=== PATIENT | female | born 1980 | race Caucasian/White ===

== ENCOUNTER → 2024-08-25 16:43 | Outpatient (CLI) | payer OTHER, SELFPAY ==
--- NOTE | 2024-08-25 16:45 | DI.MG.S_ITS ---
MM screening mammo BI: 08/25/2024. BI-RADS: 1 CLINICAL: 44-year old female for bilateral screening mammogram. Tyrer-Cuzick lifetime risk of 7.1%. No personal or first-degree family history of breast cancer. PRIOR EXAMS: None. This is a baseline mammogram. MAMMOGRAPHY TECHNIQUE: 2D and 3D (tomosynthesis) digital mammographic views obtained, with additional images as needed for full coverage. Current study was also evaluated with a Computer Aided Detection (CAD) system. DENSITY B. There are scattered areas of fibroglandular density. MAMMOGRAPHY FINDINGS Bilateral: No suspicious mass, asymmetry, microcalcification, or other abnormality seen. IMPRESSION: * No evidence of malignancy. RECOMMENDATIONS Bilateral * Annual screening mammography. OVERALL ASSESSMENT CATEGORY BI-RADS-1: Negative. The [employer] recommends annual screening mammography beginning at age 40 for women with average risk of breast cancer. ELECTRONICALLY SIGNED: Lise Smart M.D. on 08/26/2024 at 10:02:04 PM PT Interpreting Station ID: [id number]
== END ==
LOC: MAMMO 16:45
PROVIDERS: PCP Family Medicine; Referring Provider Family Medicine; Visit Provider Family Medicine
DX: Z12.31 Encounter for screening mammogram for malignant neoplasm of breast (principal)
CPT/HCPCS: 77063; 77067

== ENCOUNTER 2024-09-14 07:54 | Day surgery (SDC) | payer OTHER, SELFPAY ==
[2024-09-14 08:12] VITALS: BP 158/103; PULSE 72; RESP 16; TEMP 36.3; O2SAT 97
[2024-09-14] MEDS: LACTATED RINGERS 1,000 ML 42 ML IV (08:23)
--- NOTE | 2024-09-14 08:44 | PM.HP.IH.1 ---
History of Present Illness History of Present Illness Date Patient Seen: 09/14/24 Chief complaint: Colonoscopy Narrative: For screening colonoscopy PFSH Social History Smoking Status: Former smoker alcohol intake: current Meds Home Medications and Allergies Home Medications Medication Instructions Recorded Confirmed Type sodium,potassium,mag sulfates 17.5 See Rx Instructions PO .COMPLEX 09/12/24 Rx gram-3.13 gram-1.6 gram oral soln #354 mL (Suprep Bowel Prep Kit) buspirone 5 mg tablet 5 mg PO 3XD PRN Insomnia 09/14/24 09/14/24 History cholecalciferol (vitamin D3) 50 50 mcg PO DAILY 09/14/24 09/14/24 History mcg (2,000 unit) tablet (Vitamin D3) diphenhydramine HCl 25 mg capsule 25 mg PO BEDTIME PRN Insomnia 09/14/24 09/14/24 History (Benadryl) melatonin 5 mg tablet 5 mg PO BEDTIME PRN Insomnia 09/14/24 09/14/24 History trazodone 50 mg tablet 25 mg PO PRN PRN Sleep 09/14/24 09/14/24 History Allergies Allergy/AdvReac Type Severity Reaction Status Date / Time No Known Drug Allergies Allergy Verified 09/14/24 08:09 Exam Vital Signs (past 8 hours): - 09/14/24 08:12 Temperature 97.3 F L Pulse Rate 72 Respiratory Rate 16 Blood Pressure 158/103 H Pulse Oximetry 97 Oxygen Delivery Method Room Air Oxygen Delivery Method Room Air Narrative Exam Narrative: Oropharynx free of lesions Chest clear to auscultation percussion Cardiac exam reveals no S3 or murmur Assessment & Plan Assessment & Plan narrative: For screening for screening colonoscopy. Risks, benefits, alternatives have been explained. Time-Based Coding :: [TOTAL MINUTES] spent with patient and on the chart (including review of chart, obtaining history, exam, reviewing outside data, placing orders, documenting exam and treatment plan, and counseling patient) on [DATE]. [employer] Liquid [employer]ounder Document charge(s): No
--- NOTE | 2024-09-14 08:45 | P.OP.COLON_ITS ---
Operative Date/Time/Diagnoses Date of procedure: 09/14/24 Pre-op diagnosis: See indication and findings Procedure & Clinicians Study performed: Colonoscopy Indications: Screening Surgeon: Gregory Mace Procedure Notes Procedure in detail: After informed consent was obtained the patient was placed in left lateral d ecubitus position. The video colonoscope was introduced the rectum slowly advanced cecum. Preparation was good. On slow withdrawal mucosa was carefully examined. The scope was removed. The patient tolerated the procedure well. Blood loss none Complications none Sedation mac Findings 1.
--- NOTE | 2024-09-14 09:34 | P.OP.COLON_ITS ---
Operative Date/Time/Diagnoses Date of procedure: 09/14/24 Pre-op diagnosis: See indication and findings Post-op diagnosis: same Procedure & Clinicians Study performed: Colonoscopy Same procedure as scheduled: Yes Indications: Screening, 1st colonoscopy Surgeon: Gregory Mace Procedure Notes Procedure in detail: After informed consent was obtained the patient was placed in left lateral decubitus position. The video colonoscope was introduced the rectum slowly adv anced cecum. Preparation was good. On slow withdrawal mucosa was carefully examined. Scope was removed. The patient tolerated procedure well. Blood loss none Complications none Sedation mac Findings 1. Normal colonoscopy to cecum Patient should have follow-up colonoscopy in 10 years
[2024-09-14 09:36] VITALS: BP 145/95; PULSE 72; RESP 12; TEMP 36.8; O2SAT 98
[2024-09-14 09:41] VITALS: BP 144/109; PULSE 72; RESP 12; O2SAT 99
--- NOTE | 2024-09-14 09:43 | SUR.PHASEII ---
Talked to pt about her hypertension and how she does need to talk to her primary care about her blood pressure. Pt states she has talked to her primary and she is going on a weight loss drug.
[2024-09-14 09:46] VITALS: BP 162/96; PULSE 67; RESP 14; O2SAT 99
== END 2024-09-14 09:59 | disposition home or self-care (01) ==
PROVIDERS: PCP Family Medicine; Referring Provider Internal Medicine Gastroenterology; Visit Provider Internal Medicine Gastroenterology
PROC: 0DJD8ZZ Inspection of Lower Intestinal Tract, Via Natural or Artificial Opening Endoscopic (ICD-10-PCS; CPT 45378; principal; 2024-09-14 09:00)
DX: Z12.11 Encounter for screening for malignant neoplasm of colon (principal); Z87.891 Personal history of nicotine dependence
CPT/HCPCS: 45378; J2704

== ENCOUNTER → 2025-03-02 11:29 | Outpatient (CLI) | payer OTHER, SELFPAY ==
--- NOTE | 2025-03-02 11:30 | DI.RAD.S_ITS ---
PROCEDURE: XR CERVICAL SPINE 2V OR 3V INDICATIONS: L SHOULDER STRAIN TECHNIQUE: Four views of the cervical spine were acquired. COMPARISON: None. FINDINGS: Cervical spine curvature and alignment: Normal. Bones: There are no osseous abnormalities. Disc spaces: Normal in height without significant degeneration. Intervertebral foramen: Grossly normal in width. Soft tissues: No soft tissue swelling, calcification or mass. IMPRESSION: Normal cervical spine. Dictated by: Ishan Bailey M.D. on 03/03/2025 at 11:27 Approved by: Ishan Bailey M.D. on 03/03/2025 at 11:28
== END ==
PROVIDERS: PCP Family Medicine; Referring Provider Family Medicine; Visit Provider Family Medicine
DX: S46.912A Strain of unspecified muscle, fascia and tendon at shoulder and upper arm level, left arm, initial encounter (principal); X58.XXXA Exposure to other specified factors, initial encounter
CPT/HCPCS: 72040

== ENCOUNTER → 2025-03-27 09:32 | Outpatient (CLI) | payer OTHER, SELFPAY ==
--- NOTE | 2025-03-27 09:40 | DI.MRI.S_ITS ---
PROCEDURE: MR CERVICAL SPINE WO CON INDICATIONS: chronic neck pain TECHNIQUE: Noncontrast sagittal T1 spin echo and T2 fast spin echo, sagittal STIR, foraminal oblique sagittal T2 fast spin echo, and axial gradient echo or T2 fast spin echo through the cervical spine. COMPARISON: [facility], CR, XR CERVICAL SPINE 2V OR 3V, 03/02/2025, 11:36. FINDINGS: Image quality: Excellent. Alignment and Curvature: There is overall straightening of the normal cervical lordosis. No focal AP alignment abnormality is seen. Bone Marrow: Marrow demonstrates normal overall signal. Spinal Cord: Visualized spinal cord has normal size and signal. No cerebellar tonsillar herniation. Paraspinous Soft Tissues: No paravertebral masses. Prevertebral soft tissues are normal in thickness. C2-C3: Normal appearance. C3-C4: Normal appearance. C4-C5: The disc height and disk signal are relatively well-preserved. A mild degree of generalized disc osteophyte complex is seen. Moderate facet joint hypertrophy is seen. There is moderate left-sided and no right-sided neural narrowing. No central canal narrowing is seen. C5-C6: The disc height and disk signal are well-preserved. Mild to moderate disc osteophyte complex is seen, which is eccentric to the right. Moderate facet joint hypertrophy is seen. There is at least moderate bilateral neural foraminal narrowing seen, right worse than left. Mild to moderate central canal narrowing is seen. C6-C7: The disc height and disk signal are relatively well-preserved. Mild to moderate disc osteophyte complex is seen, which is eccentric to the left. There is a superimposed central disc osteophyte protrusion. Mild facet joint hypertrophy is seen. There is moderate to severe left-sided and moderate right-sided neural foraminal narrowing. Mild central canal narrowing is seen. C7-T1: Normal appearance. T1-T2: The disc height is relatively well preserved. There is a central disc osteophyte protrusion, as on series 3, image 43. No significant neural foraminal narrowing is seen. Mild central canal narrowing is seen. IMPRESSION: Cervical spine degenerative changes are seen, which are worst at the C5-C6 level. Dictated by: Levi Pitts M.D. on 03/27/2025 at 18:34 Approved by: Levi Pitts M.D. on 03/27/2025 at 18:37
== END ==
LOC: MRI 09:33
PROVIDERS: PCP Family Medicine; Referring Provider Family Medicine; Visit Provider Family Medicine
DX: M54.2 Cervicalgia (principal); G89.29 Other chronic pain
CPT/HCPCS: 72141

== ENCOUNTER → 2025-04-12 11:23 | Outpatient (CLI) | payer OTHER, SELFPAY ==
--- NOTE | 2025-04-12 11:25 | DI.MRI.S_ITS ---
PROCEDURE: MR SHOULDER LT WO CON
== END ==
PROVIDERS: PCP Family Medicine; Referring Provider Family Medicine; Visit Provider Family Medicine
DX: M75.112 Incomplete rotator cuff tear or rupture of left shoulder, not specified as traumatic (principal); M19.012 Primary osteoarthritis, left shoulder; M67.922 Unspecified disorder of synovium and tendon, left upper arm; S46.912S Strain of unspecified muscle, fascia and tendon at shoulder and upper arm level, left arm, sequela
CPT/HCPCS: 73221